=== PATIENT | male | born 1990 | race Caucasian/White ===

== ENCOUNTER 2019-01-25 03:54 | Emergency (ER) | payer SELFPAY ==
[~2019-01-25] VITALS: Ht 190.5 cm; Wt 77.4 kg
[2019-01-25 04:02] VITALS: BP 116/56; PULSE 59; RESP 20; Ht 190.5 cm; Wt 77.4 kg
== END 2019-01-25 04:00 | disposition left against medical advice (07) ==
LOC: E/R 03:54
DX: Z53.21 Procedure and treatment not carried out due to patient leaving prior to being seen by health care provider (principal)